=== PATIENT | female | born 1985 | race Caucasian/White ===

== ENCOUNTER 2018-02-17 10:03 | Emergency (ER) | payer BC ==
[2018-02-17 13:40] LABS: Barbiturates NEGATIVE (NEGATIVE); Benzodiazepines NEGATIVE (NEGATIVE); Cocaine NEGATIVE (NEGATIVE); METHAMPHETAM NEGATIVE (NEGATIVE); Methadone NEGATIVE (NEGATIVE); Opiates NEGATIVE (NEGATIVE); Phencyclidine NEGATIVE (NEGATIVE); THC Cannibis NEGATIVE (NEGATIVE)
--- NOTE | 2018-02-17 13:48 | EDPHYS ---
Physician Documentation [facility] Name: Terri Braden Age: 32 yrs Sex: Female : 1985 Arrival Date: 02/17/2018 Time: 10:07 Bed 5 Private MD: Norman Meza R ED Physician Maulik Smyth HPI: 02/17 13:19 This 32 yrs old Female presents to ER via Ambulatory with complaints of sabrina Dizziness, Nausea. 13:19 The patient presents with dizziness. Onset: The symptoms/episode began/occurred 2 sabrina day(s) ago. Context: occurred at a bar or nightclub, occurred while the patient was drinking. Modifying factors: The symptoms are alleviated by nothing, the symptoms are aggravated by nothing. Associated signs and symptoms: The patient has no apparent associated signs or symptoms. Severity of symptoms: At their worst the symptoms were mild in the emergency department the symptoms are unchanged. Patient's baseline: Neuro: alert and fully oriented. 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 - Social history:: Smoking status: Patient/guardian denies using tobacco. - Ebola Screening: : No symptoms or risks identified at this time. - Family history:: not pertinent. ROS: 13:19 Constitutional: Negative for fever, chills, and weight loss, Eyes: Negative for injury, sabrina pain, redness, and discharge, ENT: Negative for injury, pain, and discharge, Neck: Negative for injury, pain, and swelling, Cardiovascular: Negative for chest pain, palpitations, and edema, Respiratory: Negative for shortness of breath, cough, wheezing, and pleuritic chest pain, Abdomen/GI: Negative for abdominal pain, nausea, vomiting, diarrhea, and constipation, Back: Negative for injury and pain, : Negative for injury, bleeding, discharge, and swelling, MS/Extremity: Negative for injury and deformity, Skin: Negative for injury, rash, and discoloration, Neuro: Negative for headache, weakness, numbness, tingling, and seizure, Psych: Negative for depression, anxiety, suicide ideation, homicidal ideation, and hallucinations, Allergy/Immunology: Negative for hives, rash, and allergies, Endocrine: Negative for neck swelling, polydipsia, polyuria, polyphagia, and marked weight changes, Hematologic/Lymphatic: Negative for swollen nodes, abnormal bleeding, and unusual bruising. Exam: 13:19 Constitutional: This is a well developed, well nourished patient who is awake, alert, sabrina and in no acute distress. Head/Face: Normocephalic, atraumatic. Eyes: Pupils equal round and reactive to light, extra-ocular motions intact. Lids and lashes normal. Conjunctiva and sclera are non-icteric and not injected. Cornea within normal limits. Periorbital areas with no swelling, redness, or edema. ENT: Nares patent. No nasal discharge, no septal abnormalities noted. Tympanic membranes are normal and external auditory canals are clear. Oropharynx with no redness, swelling, or masses, exudates, or evidence of obstruction, uvula midline. Mucous membranes moist. Neck: Trachea midline, no thyromegaly or masses palpated, and no cervical lymphadenopathy. Supple, full range of motion without nuchal rigidity, or vertebral point tenderness. No Meningismus. Chest/axilla: Normal chest wall appearance and motion. Nontender with no deformity. No lesions are appreciated. Cardiovascular: Regular rate and rhythm with a normal S1 and S2. No gallops, murmurs, or rubs. Normal PMI, no JVD. No pulse deficits. Respiratory: Lungs have equal breath sounds bilaterally, clear to auscultation and percussion. No rales, rhonchi or wheezes noted. No increased work of breathing, no retractions or nasal flaring. Abdomen/GI: Soft, non-tender, with normal bowel sounds. No distension or tympany. No guarding or rebound. No evidence of tenderness throughout. Back: No spinal tenderness. No costovertebral tenderness. Full range of motion. Skin: Warm, dry with normal turgor. Normal color with no rashes, no lesions, and no evidence of cellulitis. MS/ Extremity: Pulses equal, no cyanosis. Neurovascular intact. Full, normal range of motion. Neuro: Awake and alert, GCS 15, oriented to person, place, time, and situation. Cranial nerves II-XII grossly intact. Motor strength 5/5 in all extremities. Sensory grossly intact. Cerebellar exam normal. Normal gait. Psych: Awake, alert, with orientation to person, place and time. Behavior, mood, and affect are within normal limits. Vital Signs: 10:41 BP 141 / 77; Pulse 62; Resp 16 S; Temp 99.2(TE); Pulse Ox 100% on R/A; Weight 61.23 kg aa5 (R); Height 5 ft. 2 in. (157.48 cm) (R); Pain 7/10; 14:50 BP 110 / 72; Pulse 70; Resp 19; Pulse Ox 99% on R/A; aj 10:41 Body Mass Index 24.69 (61.23 kg, 157.48 cm) aa5 MDM: 12:28 Patient medically screened. [facility] 13:19 Data reviewed: vital signs, nurses notes, lab test result(s), radiologic studies, CT sabrina scan. 02/17 12:34 Order name: Urine Dipstick--Ancillary (enter results) 02/17 12:34 Order name: Urine --Ancillary (enter results) 02/17 13:19 Order name: Acetaminophen; Complete Time: 14:43 [facility] 02/17 13:19 Order name: Basic Metabolic Panel; Complete Time: 14:43 [facility] 02/17 13:19 Order name: CBC with Diff; Complete Time: 14:25 [facility] 02/17 13:19 Order name: ETOH Level; Complete Time: 14:43 [facility] 02/17 13:19 Order name: CT Head Brain wo Cont; Complete Time: 14:25 [facility] 02/17 13:19 Order name: Hepatic Function; Complete Time: 14:43 [facility] 02/17 13:19 Order name: PT-INR; Complete Time: 14:25 [facility] 02/17 13:19 Order name: Ptt, Activated; Complete Time: 14:25 [facility] 02/17 13:19 Order name: Salicylate [facility] 02/17 13:19 Order name: Urine Drug Screen; Complete Time: 13:47 [facility] 02/17 13:19 Order name: EKG; Complete Time: 13:20 [facility] 02/17 13:19 Order name: EKG - Nurse/Tech; Complete Time: 13:48 [facility] 02/17 13:19 Order name: IV Saline Lock; Complete Time: 13:48 [facility] 02/17 13:19 Order name: Labs collected and sent; Complete Time: 13:49 [facility] 02/17 13:19 Order name: Urine Dipstick-Ancillary (obtain specimen); Complete Time: 13:22 [facility] 02/17 14:44 Order name: PO challenge: juice; Complete Time: 14:48 [facility] Administered Medications: 13:30 Drug: NS 0.9% 500 ml Route: IV; Rate: bolus; Site: right antecubital; bp 14:49 Follow up: Response: No adverse reaction; IV Status: Completed infusion; IV Intake: aj 500ml 14:48 Drug: Potassium Effervescent Tablet 25 mEq Route: PO; aj 14:49 Follow up: Response: Medication administered at discharge. aj Disposition: 02/17/18 13:47 Discharged to Home. Impression: Superficial injury of head, Hypokalemia. - Condition is Stable. - Discharge Instructions: Alcohol Intoxication, Concussion, Adult, Potassium Content of Foods, Head Injury, Adult, Alcohol Intoxication, Xbma-kt-Ilfq, Alcohol Abuse and Nutrition, Concussion, Adult, Gyim-eu-Cqkw, Head Injury, Adult, Zkbc-cq-Wdcp, Hypokalemia. - Medication Reconciliation Form, Thank You Letter, Antibiotic Education, Prescription Opioid Use form. - Follow up: Norman Meza; When: 2 - 3 days; Reason: Recheck today's complaints, Continuance of care, Re-evaluation by your physician. - Problem is new. - Symptoms have improved. Signatures: Dispatcher [employer] EDMS Ashlee Islas RN Maulik Singh MD MD cha Calderon, Audri, RN RN aa5 John Ewing RN RN bp Corrections: (The following items were deleted from the chart) 14:44 13:47 02/17/2018 13:47 Discharged to Home. Impression: Superficial injury of head. [facility] Condition is Stable. Discharge Instructions: Alcohol Intoxication, Head Injury, Adult, Alcohol Intoxication, Yqsr-fh-Ljvx, Alcohol Abuse and Nutrition, Head Injury, Adult, Nivb-in-Igql, Concussion, Adult, Concussion, Adult, Ovoc-im-Ymre. Forms are Medication Reconciliation Form, Thank You Letter, Antibiotic Education, Prescription Opioid Use. Follow up: Norman Meza; When: 2 - 3 days; Reason: Recheck today's complaints, Continuance of care, Re-evaluation by your physician. Problem is new. Symptoms have improved. [facility] 14:51 14:44 02/17/2018 13:47 Discharged to Home. Impression: Superficial injury of head; aj Hypokalemia. Condition is Stable. Discharge Instructions: Alcohol Intoxication, Head Injury, Adult, Alcohol Intoxication, Ctzy-mp-Ywdf, Alcohol Abuse and Nutrition, Head Injury, Adult, Ntoj-et-Rgeo, Concussion, Adult, Concussion, Adult, Kgar-jm-Spym. Forms are Medication Reconciliation Form, Thank You Letter, Antibiotic Education, Prescription Opioid Use. Follow up: Norman Meza; When: 2 - 3 days; Reason: Recheck today's complaints, Continuance of care, Re-evaluation by your physician. Problem is new. Symptoms have improved. sabrina
--- NOTE | 2018-02-17 13:48 | ER ---
Nurse's Notes [facility] Name: Terri Braden Age: 32 yrs Sex: Female : 1985 Arrival Date: 02/17/2018 Time: 10:07 Bed 5 Private MD: Norman Meza R Diagnosis: Superficial injury of head;Hypokalemia Presentation: 02/17 10:40 Presenting complaint: Patient states: "I was drinking Tuesday night and I just aa5 collapsed falling backwards and my friends said that I was out for about 2 minutes". Pt c/o dizziness, nausea, and vomiting. Pt states "I am just worried that I have a concussion". Transition of care: patient was not received from another setting of care. Onset of symptoms was January 2018. Risk Assessment: Do you want to hurt yourself or someone else? Patient reports no desire to harm self or others. Initial Sepsis Screen: Does the patient meet any 2 criteria? No. Patient's initial sepsis screen is negative. Does the patient have a suspected source of infection? No. Patient's initial sepsis screen is negative. Care prior to arrival: None. 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 - Social history:: Smoking status: Patient/guardian denies using tobacco. - Ebola Screening: : No symptoms or risks identified at this time. - Family history:: not pertinent. Screenin:21 Abuse screen: Denies threats or abuse. Denies injuries from another. Nutritional aj screening: No deficits noted. Tuberculosis screening: No symptoms or risk factors identified. Fall Risk None identified. Assessment: 12:21 General: Appears in no apparent distress. comfortable, Behavior is calm, cooperative, aj appropriate for age. Pain: Denies pain. Neuro: Level of Consciousness is awake, alert, obeys commands, Oriented to person, place, time, situation, Appropriate for age Reports headache. Respiratory: Airway is patent Respiratory effort is even, unlabored, Respiratory pattern is regular, symmetrical. GI: Abdomen is flat, Reports nausea, vomiting. Derm: Skin is intact, is healthy with good turgor, Skin is pink, warm \\T\\ dry. normal. Vital Signs: 10:41 BP 141 / 77; Pulse 62; Resp 16 S; Temp 99.2(TE); Pulse Ox 100% on R/A; Weight 61.23 kg aa5 (R); Height 5 ft. 2 in. (157.48 cm) (R); Pain 7/10; 14:50 BP 110 / 72; Pulse 70; Resp 19; Pulse Ox 99% on R/A; aj 10:41 Body Mass Index 24.69 (61.23 kg, 157.48 cm) aa5 ED Course: 10:07 Patient arrived in ED. mr 10:07 Norman Meza MD is Private Physician. mr 10:39 Arm band placed on. aa5 10:41 Triage completed. aa5 12:18 John Ewing, RN is Primary Nurse. bp 12:20 Primary Nurse role handed off by John Ewing, OZZIE aj 12:20 Ashlee Islas, OZZIE is Primary Nurse. aj 12:21 Patient has correct armband on for positive identification. aj 12:28 Maulik Smyth MD is Attending Physician. sabrina 13:30 Inserted saline lock: 22 gauge in right antecubital area, using aseptic technique. bp Blood collected. 13:47 Norman Meza MD is Referral Physician. sabrina 13:57 CT Head Brain wo Cont In Process Unspecified. EDMS 14:50 No provider procedures requiring assistance completed. IV discontinued, intact, aj bleeding controlled, No redness/swelling at site. Pressure dressing applied. Administered Medications: 13:30 Drug: NS 0.9% 500 ml Route: IV; Rate: bolus; Site: right antecubital; bp 14:49 Follow up: Response: No adverse reaction; IV Status: Completed infusion; IV Intake: aj 500ml 14:48 Drug: Potassium Effervescent Tablet 25 mEq Route: PO; aj 14:49 Follow up: Response: Medication administered at discharge. aj Intake: 14:49 IV: 500ml; Total: 500ml. aj Outcome: 13:47 Discharge ordered by . sabrina 14:50 Discharged to home ambulatory. aj 14:50 Condition: good 14:50 Discharge instructions given to patient, Instructed on discharge instructions, follow up and referral plans. Demonstrated understanding of instructions, follow-up care. 14:51 Patient left the ED. aj Signatures: Dispatcher [employer] Ashlee Lara RN RN Maulik Ayala MD MD cha Rivera, Mary mr Herminia Moise, RN RN aa5 John Ewing RN RN bp
[2018-02-17] MEDS ORDERED: NA CHLORIDE 0.9% 500 ML ONE (13:53)
[2018-02-17 13:54] LABS: Absolute Lymphocytes (CBC) 2.3 K/uL (0.7-4.9); Absolute Monocytes 0.3 K/uL (0.1-1.3); Absolute Neutrophil 3.1 K/uL (1.8-8.0); Eosinophils % 3.4 % (0-4.4); Hematocrit 38.7 % (36.0-45.0); Lymphocytes % 38.5 % (15.3-44.8); MCH 31.5 pg (27.0-35.0); MCV 90.4 fL (80-100); MPV 9.5 fL (7.6-11.3); Monocytes % 5.5 % (3.3-12.3); RBC Red Blood Cell Count 4.28 M/uL (3.86-4.86)
--- NOTE | 2018-02-17 14:10 | RAD REPORT ---
EXAM DESCRIPTION: CT - Head Brain Wo Cont - 02/17/2018 1:57 pm CLINICAL HISTORY: Fall, loss of consciousness COMPARISON: CT head August 2009 TECHNIQUE: Axial 5 mm thick images of the head were obtained without IV contrast. All CT scans are performed using dose optimization technique as appropriate and may include automated exposure control or mA/KV adjustment according to patient size. FINDINGS: No intracranial hemorrhage, mass, edema or shift of mid-line structures. No acute infarcti on changes seen. Minimal focus of decreased attenuation left occipital lobe white matter is not subst antially different from 2010. Ventricles are normal. Physiologic calcifications are present. Mastoid air cells and visualized portions of the paranasal sinuses are clear. No acute bony findings. IMPRESSION: Negative noncontrast CT head for acute finding. No changes from 2009.
[2018-02-17 14:28] LABS: ALT/SGPT 32 U/L (12-78); AST/SGOT 30 U/L (15-37); Albumin 4.5 g/dL (3.4-5.0); Alkaline Phosphatase 52 U/L (45-117); BUN Blood Urea Nitrogen 12 mg/dL (7-18); Bicarbonate 25 mmol/L (21-32); Bilirubin Direct 0.2 mg/dL (0-0.2); Bilirubin Total 0.6 mg/dL (0.2-1.0); Glucose Level 91 mg/dL (74-106); Potassium 3.1 mmol/L (3.5-5.1); Protein, Total 7.9 g/dL (6.4-8.2); Sodium Level 142 mmol/L (136-145)
[2018-02-17] MEDS ORDERED: POTASSIUM 25 MEQ EFFERV TAB ONE (14:51)
[2018-02-17 14:59] VITALS: TEMP 99.2
[2018-02-17 15:00] VITALS: BP 110/72; O2SAT 99
[2018-02-17 15:40] LABS: Urine Specific Gravity 1.015 (1.005-1.030)
[2018-02-17 15:41] LABS: Urine Blood NEGATIVE (NEG); Urine Glucose NEGATIVE (NEG); Urine Protein NEGATIVE (NEG)
--- NOTE | 2018-02-18 07:03 | EKG ---
Test Date: 2018-02-17 Test Time: 13:32:32 Remelt Pan Tank Operator: LAURA MEASUREMENT RESULTS: Intervals: Rate: 54 WY: 124 QRSD: 88 QT: 432 QTc: 409 [place]: P: 16 WY: 124 QRS: 48 T: 46 INTERPRETIVE STATEMENTS: Sinus bradycardia Nonspecific T wave abnormality Abnormal ECG No previous ECG available for comparison Electronically Signed On 02-18-18 07:02:36 [employer] by Michael Wilkinson
== END 2018-02-17 14:51 | disposition home or self-care (01) ==
LOC: ER 10:03
DX: S00.90XA Unspecified superficial injury of unspecified part of head, initial encounter (principal); E87.6 Hypokalemia; X58.XXXA Exposure to other specified factors, initial encounter; Y93.9 Activity, unspecified; Y92.89 Other specified places as the place of occurrence of the external cause; Z88.0 Allergy status to penicillin; Z98.82 Breast implant status
CPT/HCPCS: 36415; 70450; 80048; 80076; 80307; 80320; 80329; 81003; 81025; 85025; 85610; 85730; 93005; 96360; 99284

== ENCOUNTER 2022-04-06 16:20 | Emergency (ER) | payer BC ==
--- OUTSIDE RECORDS SUMMARY | 2022-04-06 16:23 | XMS REPORT | Continuity of Care Document ---
:1985 Author Organization [facility] t Address [address] [place] [address] Care Team Providers Name Role Phone LARON ALFORD Attending Clinician Unavailable LAB90 Attending Clinician Unavailable DESAHWN KHANNA Attending Clinician Unavailable ANGELINE COYLE Attending Clinician Unavailable UNKNOWN, ATTENDING Attending Clinician Unavailable SONA IZQUIERDO Attending Clinician Unavailable DEMETRIA ALAS Attending Clinician Unavailable LARON ALFORD Admitting Clinician Unavailable DEMETRIA ALAS Admitting Clinician Unavailable Payers Payer Name Policy Type Policy Number Effective Date Expiration Date S ource [employer] [place] - [id number] 2017 00:00:00 [facility] [id number] 2022 00:00:00 Problems Condition Condition Condition Status Onset Resolution Last Treating Co mments Source Name Details Category Date Date Treatment Clinician Date Lower Lower Disease Active Anna abdominal abdominal 1-10 Seyb old pain pain 00:00: - 00 Externa l Anxiety Anxiety Disease Active Anna 1-10 Seybold 00:00: - 00 Externa l Allergies, Adverse Reactions, Alerts Allergy Allergy Status Severity Reaction(s) Onset Inactive Treating Comm ents Source Name Type Date Date Clinician PENICILL Drug Active Unknown-Cmnt 2018-03 Un kendrick INS Class 2-02 ity of 00:00: [place] [facility] Penicill Propensi Active 2018-03 Other Anna ins ty to 2-02 reaction( Seybold adverse 00:00: s): - reaction 00 Unknown - Exter na s See l commentsC hildhood / unknown reaction Social History Social Habit Start Date Stop Date Quantity Comments Source History SDOH Anna Seybo ld Alcohol Frequency - Exter nal History SDOH Anna Lesly lamar Alcohol Std - External Drinks History SDOH Anna lamar Alcohol Binge - External History of Anna Rosana tobacco use - External Alcohol Comment 2022-04-06 2022-04-06 occasionally Anna jossie 00:00:00 00:00:00 - External Tobacco use and 2022-04-06 2022-04-06 Smokeless tobacco Brice Wayne exposure 00:00:00 00:00:00 non-user - External Alcohol intake 2022-04-06 2022-04-06 Current drinker of Brice Wayne 00:00:00 00:00:00 alcohol (finding) - Exter nal Sex [birth year] At [birth year] Anna Se sethi 00:00:00 00:00:00 - External Smoking Status Start Date Stop Date Source Ex-smoker 2022-04-06 00:00:00 2022-04-06 00:00:00 Anna roth - External Medications Ordered Filled Start Stop Current Ordering Indication Dosage Frequency Signature Comments Components Source Medication Medication Date Date Medication? Clinician (SIG) Name Name Escitalopra Yes 10mg Take 10 mg Anna byrd Oxalate 1-10 by mouth Angelaol d (Lexapro) 08:44: daily - 10 MG oral 27 Externa Tablet l Immunizations Ordered Immunization Filled Immunization Date Status Commen ts Source Name Name Tdap- (Boostrix, 2019-08-14 Completed Anna roth Adacel) 00:00:00 - External Influenza Virus 2019-04-05 Completed Anna sethi Vaccine, No Preserv, 00:00:00 - Ex ternal age 6 months and up Vital Signs Vital Name Observation Time Observation Value Comments Source Systolic blood 2022-04-06 14:37:00 120 mm[Hg] Anna Wayne - pressure External Diastolic blood 2022-04-06 14:37:00 72 mm[Hg] Erendira Wayne - pressure External Heart rate 2022-04-06 14:37:00 87 /min Anna roth - External Body temperature 2022-04-06 14:37:00 35.89 Pauline Jeniseselvin Wayne - External Respiratory rate 2022-04-06 14:37:00 14 /min Jenise Wayne - External Body height 2022-04-06 14:37:00 154.9 cm Anna roth - External Body weight 2022-04-06 14:37:00 68.493 kg Anna roth - External BMI 2022-04-06 14:37:00 28.53 kg/m2 Anna roth - External Procedures This patient has no known procedures. Plan of Care Planned Activity Planned Date Details Comments Source Encounters Start End Encounter Admission Attending Care Care Encounter Source Date/Time Date/Time Type Type Clinicians Facility Department ID 2021-01-23 Outpatient R ALFORDLARON [facility] [id number] [facility] 14:22:40 [facility] 2021-01-23 Outpatient P [facility] [id number] [facility] 07:01:40 [facility] 2021-01-23 Outpatient P [facility] [id number] [facility] 07:01:04 [facility] 2022-04-06 2022-04-06 Outpatient LAB90 ANNA FERRARA [id number] Anna 15:20:00 15:20:00 Seybol d 2022-04-06 2022-04-06 Outpatient LAB90 ANNA FERRARA [id number] Anna 09:10:00 09:10:00 Seybol d 2022-04-06 2022-04-06 Outpatient ANNA KHANNA [id number] Anna 08:30:00 08:30:00 DESHAWN Seybol d 2022-04-06 2022-04-06 Outpatient ANNA COYLE [id number] Anna 00:00:00 00:00:00 ANGELINE Seybol d 2022-04-06 2022-04-06 Outpatient ANNA KHANNA [id number] Anna 00:00:00 00:00:00 DESHAWN Seybol d 2020-11-16 2020-11-16 Outpatient Ryan WING [facility] [id number] Univers 10:00:00 10:00:00 ATTENDING [facility] 2020-10-13 2020-10-13 Outpatient R FELECIA [facility] [id number] Univers 13:00:00 13:00:00 [facility] 2020-05-12 2020-05-12 Outpatient Ryan JARVISMELISSA [facility] [id number] Univers 10:00:00 10:00:00 [facility] 2020-02-19 2020-02-19 Outpatient Ryan ALFORD [facility] [id number] Univers 16:00:00 16:00:00 [facility] 2020-02-05 2020-02-05 Outpatient R PRASHANTH [facility] [id number] [facility] 14:30:[facility] 2019-12-27 Outpatient R PRASHANTH [facility] [id number] Univers 15:30:00 15:30:00 [facility] 2019-12-14 2019-12-14 Outpatient R PRASHANTH [facility] [id number] Univers 15:00:00 15:00:00 [facility] 2019-12-10 2019-12-10 Outpatient R FELECIA [facility] [id number] Univers 11:00:00 11:00:00 [facility] 2019-12-10 2019-12-10 Outpatient Ryan ALFORD [facility] [id number] Univers 09:30:00 09:30:00 [facility] 2019-11-30 2019-11-30 Outpatient Ryan ALFORD [facility] [id number] Univers 09:45:00 09:45:00 [facility] 2019-11-16 2019-11-16 Outpatient R PRASHANTH LARON [facility] [id number] Univers 14:00:00 14:00:00 [facility] 2019-11-14 2019-11-14 Outpatient R FELECIA [facility] [id number] Univers 11:00:00 11:00:00 [facility] 2019-11-09 2019-11-09 Outpatient Ryan IZQUIERDO [facility] [id number] Univers 16:15:00 16:15:00 [facility] 2019-10-18 2019-10-18 Outpatient R [facility] [id number] Univers 10:30:00 10:30:00 [facility] 2019-10-15 2019-10-15 Outpatient R FELECIA [facility] [id number] Univers 11:15:00 11:15:00 [facility] 2019-10-12 2019-10-12 Outpatient R LARON ALFORD [facility] [id number] Univers 13:00:00 13:00:00 ity [facility] 2019-10-10 2019-10-10 Outpatient R LARON ALFORD [facility] [id number] Univers 14:45:00 14:45:00 ity [facility] 2019-10-05 2019-10-05 Outpatient R FELECIA [facility] [id number] Univers 08:15:00 08:15:00 [facility] 2019-10-03 2019-10-03 Outpatient R FELECIA [facility] [id number] Univers 16:15:00 16:15:00 [facility] 2019-09-28 2019-09-28 Outpatient R PRASHANTH [facility] [id number] Univers 13:30:00 13:30:00 ity [facility] 2019-09-27 2019-09-27 Outpatient R LARON ALFORD [facility] [id number] [facility] 08:00:00 08:[facility] 2019-09-13 Outpatient R PRASHANTH LARON [facility] [id number] Univers 08:15:00 08:15:00 ity [facility] 2019-08-31 2019-08-31 Outpatient R FELECIA [facility] [id number] Univers 11:30:00 11:30:00 [facility] 2019-08-17 2019-08-17 Outpatient R [facility] [id number] Univers 08:30:00 08:30:00 ity [facility] 2019-08-16 2019-08-16 Outpatient R [facility] [id number] Univers 08:30:00 08:30:00 ity [facility] 2019-08-14 2019-08-14 Outpatient R PRASHANTH [facility] [id number] Univers 13:30:00 13:30:00 [facility] 2019-08-07 2019-08-07 Outpatient R EVETTE [facility] [id number] Univers 10:00:00 10:00:00 DEMETRIA [facility] 2019-07-26 2019-07-26 Outpatient R LARON ALFORD [facility] [id number] Univers 10:30:00 10:30:00 [facility] 2019-06-28 2019-06-28 Outpatient R FELECIA [facility] [id number] Univers 08:45:00 08:45:00 SONA [facility] 2019-06-01 2019-06-01 Outpatient P [facility] [id number] Univers 08:00:00 08:00:00 [facility] 2019-05-31 2019-05-31 Outpatient LARON GARCIA [facility] [id number] Univers 08:30:00 08:30:00 [facility] Results This patient has no known results.
[2022-04-06 17:31] LABS: Urine Blood Trace-intact (Negative); Urine Glucose Negative (Negative); Urine Protein Trace (Negative); Urine Specific Gravity >=1.030 (1.005-1.030); Urine pH 6.5 (5.0-7.0)
[2022-04-06] MEDS ORDERED: HYDROCODONE/CHLORPHEN 5 ML/OSYR ONE (18:14)
[2022-04-06 18:49] LABS: Urine Specific Gravity/Preg >1.030 (1.005-1.030)
[2022-04-06] MEDS ORDERED: ONDANSETRON 4 MG/2 ML VIAL ONE (19:52)
[2022-04-06] MEDS ORDERED: KETOROLAC 30 MG/ML INJ ONE (19:52)
[2022-04-06] MEDS ORDERED: NA CHLORIDE 0.9% 1,000 ML ONE (19:52)
[2022-04-06 20:00] LABS: Absolute Lymphocytes (CBC) 2.6 K/uL (0.7-4.9); Hematocrit 34.2 % (36.0-45.0); Lymphocytes % 28.9 % (15.3-44.8); MCV 96.2 fL (80-100); MPV 8.7 fL (7.6-11.3); RBC Red Blood Cell Count 3.55 M/uL (3.86-4.86)
[2022-04-06 20:14] LABS: Albumin 3.6 g/dL (3.4-5.0); Bilirubin Total 0.5 mg/dL (0.2-1.0); Protein, Total 7.2 g/dL (6.4-8.2)
[2022-04-06 21:32] LABS: Urine Bacteria None Seen /HPF (<20); Urine Crystals Unidentified Few /HPF (None Seen); Urine Mucus 3+ /HPF (None Seen); Urine WBC Clump Occasional /HPF (None Seen)
--- NOTE | 2022-04-06 21:38 | RAD REPORT ---
EXAM DESCRIPTION: CT - Abdomen Pelvis W Contrast - 04/06/2022 9:00 pm CLINICAL HISTORY: lower abdomen pain COMPARISON: No comparisonsNo comparisons TECHNIQUE: Biphasic, helical CT imaging of the abdomen and pelvis was performed following 100 ml non -ionic IV contrast. Oral contrast: No. All CT scans are performed using dose optimization technique as appropriate and may include automated exposure control or mA/KV adjustment according to patient size. FINDINGS: No suspicious findings in the lung bases. The liver, spleen, and pancreas show no suspicious findings. Gallbladder and biliary tree are also wi thout suspicious finding. Symmetric renal function is seen with no hydronephrosis or suspicious renal mass. No pyelonephritis o r acute parenchymal process. No bladder abnormalities. No adrenal abnormalities. Uterus and ovaries s how no suspicious findings. No dilated bowel loops or bowel wall thickening. Appendix is normal. No free air, free fluid or infla mmatory stranding. No hernia, mass or bulky lymphadenopathy. No suspicious bony findings. Bilateral breast implants are in place. There is infolding of the left breast implant capsule indicat ing partial collapse. IMPRESSION: Contrast enhanced CT abdomen and pelvis showing no acute or emergent finding. Left breast implant findings suggest rupture and partial collapse. Implant is only partially imaged.
--- NOTE | 2022-04-06 22:43 | RAD REPORT ---
EXAM DESCRIPTION: US - Transvaginal Study Probe - 04/06/2022 10:29 pm CLINICAL HISTORY: lower abdomen pain COMPARISON: No comparisons TECHNIQUE: Endovaginal sonography was performed. FINDINGS: Uterine size is normal. No myometrial mass identified. Small nabothian cysts present. No e ndometrial mass or polyp identifiable. No abnormal fluid in the endometrial canal. No fallopian tube dilatation. Physiologic quantity of free fluid seen in the cul de sac. Both ovaries are identified. Normal blood flow seen in the ovarian stroma. A 1.5 centimeter left ovar chris anechoic cyst is present. No adnexal abnormalities. IMPRESSION: Endovaginal pelvic ultrasound, as detailed above, without significant or suspicious find ing.
--- NOTE | 2022-04-07 00:18 | ER ---
Nurse's Notes [facility] Name: Terri Braden Age: 36 yrs Sex: Female : 1985 Arrival Date: 04/06/2022 Time: 16:22 Bed 18 Private MD: Adams Raza Diagnosis: Lower abdominal pain, unspecified Presentation: 04/06 16:28 Chief complaint: Patient states: Lower abd pain for 5 days. Had 4 days of diarrhea, but ll1 gone now. No fever or dysuria. Coronavirus screen: Vaccine status: Patient reports being unvaccinated. Client denies travel out of the [place] in the last 14 days. At this time, the client does not indicate any symptoms associated with coronavirus-19. Ebola Screen: Patient denies travel to an Ebola-affected area in the 21 days before illness onset. Initial Sepsis Screen: Does the patient meet any 2 criteria? No. Patient's initial sepsis screen is negative. Does the patient have a suspected source of infection? Yes: Acute abdominal pain. Risk Assessment: Do you want to hurt yourself or someone else? Patient reports no desire to harm self or others. Onset of symptoms was April 01, 2022. 16:28 Method Of Arrival: Ambulatory ll1 16:28 Acuity: EVANS 3 ll1 Historical: - Allergies: 16:30 PENICILLINS; ll1 - PMHx: 16:30 Asthma; ll1 - PSHx: 16:30 ankle ORIF; breast augmentation x 2; ll1 - Immunization history:: Client reports having NOT received the Covid vaccine. - Social history:: Smoking status: Reported history of juuling and/or vaping. Patient/guardian denies using tobacco. Screenin:15 [facility] ED Fall Risk Assessment (Adult) History of falling in the last 3 months, jj7 including since admission No falls in past 3 months (0 pts) Confusion or Disorientation No (0 pts) Intoxicated or Sedated No (0 pts) Impaired Gait No (0 pts) Mobility Assist Device Used No (0 pt) Altered Elimination No (0 pt) Score/Fall Risk Level 0 - 2 = Low Risk Oriented to surroundings, Maintained a safe environment. Abuse screen: Denies threats or abuse. Nutritional screening: No deficits noted. Tuberculosis screening: No symptoms or risk factors identified. Assessment: 19:15 General: Appears in no apparent distress. comfortable, Behavior is calm, cooperative, jj7 appropriate for age. Pain: Complains of pain in right lower quadrant and left lower quadrant. GI: Bowel sounds present X 4 quads. Abd is soft X 4 quads Abdomen is tender to palpation in suprapubic area, right lower quadrant and left lower quadrant. Vital Signs: 16:28 BP 123 / 85; Pulse 70; Resp 16; Temp 98.2; Pulse Ox 100% ; Weight 68.04 kg; Height 5 ll1 ft. 1 in. (154.94 cm); Pain 7/10; 20:18 BP 117 / 73; Pulse 62; Resp 17; Pulse Ox 100% ; jj7 21:27 BP 118 / 65; Pulse 65; Resp 20; Pulse Ox 100% ; Pain 0/10; jj7 23:00 BP 116 / 61; Pulse 65; Resp 20; Pulse Ox 100% ; jj7 04/07 00:00 BP 119 / 70; Pulse 63; Resp 20; Pulse Ox 100% ; jj7 01:10 BP 121 / 68; Pulse 61; Resp 20; Pulse Ox 99% ; Pain 0/10; jj7 04/06 16:28 Body Mass Index 28.34 (68.04 kg, 154.94 cm) ll1 ED Course: 04/06 16:22 Patient arrived in ED. as 16:22 Adams Raza DO is Private Physician. as 16:29 Triage completed. ll1 16:31 Arm band placed on. ll1 16:46 Maulik Casillas PA is PHCP. cp 16:46 Vikas Hartmann MD is Attending Physician. cp 17:31 Urine collected: clean catch specimen, cloudy. tm3 19:15 Patient has correct armband on for positive identification. Placed in gown. Bed in low jj7 position. Call light in reach. 19:21 Desmond Crowe, OZZIE is Primary Nurse. jj7 19:40 Inserted saline lock: 22 gauge in right upper arm, using aseptic technique. Blood jj7 collected. 19:46 CBC with Diff Sent. jj7 19:46 CMP Sent. jj7 19:46 Lipase Sent. jj7 19:46 Urine Microscopic Only Sent. jj7 21:02 CT Abd/Pelvis - IV Contrast Only In Process Unspecified. EDMS 22:31 US Transvaginal Study (Probe) In Process Unspecified. EDMS 23:00 Assist provider with pelvic exam: Set up pelvic tray. jj7 23:21 Assist provider with pelvic exam: Performed by Maulik PATINO Specimens sent to lab. jj7 Patient tolerated well. 04/07 00:17 Adams Raza DO is Referral Physician. cp 00:58 IV discontinued, intact, bleeding controlled, No redness/swelling at site. Pressure jj7 dressing applied. Administered Medications: 04/06 19:53 Drug: NS 0.9% 1000 ml Route: IV; Rate: 1 bolus; Site: right upper arm; jj7 22:59 Follow up: IV Status: Completed infusion jj7 19:54 Drug: TORadol - (ketorolac) 15 mg Route: IVP; Site: right upper arm; jj7 20:15 Follow up: Response: Pain is decreased jj7 19:54 Drug: Zofran (Ondansetron) 4 mg Route: IVP; Site: right upper arm; jj7 20:07 Follow up: Response: No adverse reaction jj7 04/07 00:55 Drug: Dicyclomine 20 mg Route: IM; Site: left gluteus; jj7 01:05 Follow up: Response: No adverse reaction jj7 01:10 Follow up: Response: No adverse reaction jj7 Medication: 04/06 19:15 VIS not applicable for this client. jj7 Outcome: 04/07 00:17 Discharge ordered by MD. cp 01:10 Discharged to home ambulatory. jj7 01:10 Condition: improved 01:10 Discharge instructions given to patient, Instructed on discharge instructions, follow up and referral plans. medication usage, Demonstrated understanding of instructions, follow-up care, medications, Prescriptions given X 2. 01:33 Patient left the ED. jj7 Signatures: Dispatcher [employer] EDME CatherineFernando Amelia as Maulik Casillas PA PA cp Lencho Alves RN RN ll1 Desmond Crowe RN RN jj7 Corrections: (The following items were deleted from the chart) 04/06 16:31 16:30 PSHx: lyph node removed; ll1 ll1
--- NOTE | 2022-04-07 00:18 | EDPHYS ---
Physician Documentation [facility] Name: Terri Braden Age: 36 yrs Sex: Female : 1985 Arrival Date: 04/06/2022 Time: 16:22 Bed 18 Private MD: Adams Raza ED Physician Vikas Hartmann HPI: 04/06 19:45 This 36 yrs old Female presents to ER via Ambulatory with complaints of Abdominal Pain. cp 19:45 The patient presents with abdominal pain in the lower abdomen. Onset: The cp symptoms/episode began/occurred intermittent for past several months,pain returned this past and has been persistent. The symptoms do not radiate. 19:45 Associated signs and symptoms: Pertinent positives: diarrhea, Pertinent negatives: cp anorexia, blood in stools, constipation, dysuria, fever, vaginal discharge, vomiting. 19:45 The symptoms are described as constant, crampy. Severity of pain: in the emergency cp department the pain is unchanged despite home interventions. Historical: - Allergies: 16:30 PENICILLINS; ll1 - PMHx: 16:30 Asthma; ll1 - PSHx: 16:30 ankle ORIF; breast augmentation x 2; ll1 - Immunization history:: Client reports having NOT received the Covid vaccine. - Social history:: Smoking status: Reported history of juuling and/or vaping. Patient/guardian denies using tobacco. ROS: 19:50 Constitutional: Negative for body aches, chills, fever, poor PO intake. cp 19:50 Abdomen/GI: Positive for abdominal pain, of the right lower quadrant and left lower cp quadrant. 19:50 Cardiovascular: Negative for chest pain, edema, palpitations. cp 19:50 Eyes: Negative for injury, pain, redness, and discharge. cp 19:50 ENT: Negative for drainage from ear(s), ear pain, sore throat, difficulty swallowing, difficulty handling secretions. 19:50 Respiratory: Negative for cough, shortness of breath, wheezing. 19:50 Back: Negative for pain at rest, pain with movement. 19:50 Neuro: Negative for altered mental status, dizziness, headache, numbness, weakness. 19:50 All other systems are negative. Exam: 19:53 Constitutional: The patient appears in no acute distress, alert, awake, non-toxic, well cp developed, well nourished. 19:53 Head/Face: Normocephalic, atraumatic. cp 19:53 Eyes: Periorbital structures: appear normal, Conjunctiva: normal, no exudate, no injection, Sclera: no appreciated abnormality, Lids and lashes: appear normal, bilaterally. 19:53 ENT: External ear(s): are unremarkable, Nose: is normal, Mouth: Lips: moist, Oral mucosa: moist, Posterior pharynx: Airway: no evidence of obstruction, patent. 19:53 Chest/axilla: Inspection: normal. 19:53 Cardiovascular: Rate: normal, Rhythm: regular. 19:53 Respiratory: the patient does not display signs of respiratory distress, Respirations: normal, no use of accessory muscles, no retractions, no splinting, no tachypnea, labored breathing, is not present, Breath sounds: are clear throughout, no decreased breath sounds, no stridor, no wheezing. 19:53 Abdomen/GI: Inspection: abdomen appears normal, Bowel sounds: active, all quadrants, Palpation: soft, in all quadrants, moderate abdominal tenderness, in the right lower quadrant and left lower quadrant. 19:53 Back: pain, ROM is normal. 23:24 : Pelvic Exam: External exam: is normal, discharge, white, the nurse was present for cp the exam, Sexual behavior: the patient is sexually active. Vital Signs: 16:28 BP 123 / 85; Pulse 70; Resp 16; Temp 98.2; Pulse Ox 100% ; Weight 68.04 kg; Height 5 ll1 ft. 1 in. (154.94 cm); Pain 7/10; 20:18 BP 117 / 73; Pulse 62; Resp 17; Pulse Ox 100% ; jj7 21:27 BP 118 / 65; Pulse 65; Resp 20; Pulse Ox 100% ; Pain 0/10; jj7 23:00 BP 116 / 61; Pulse 65; Resp 20; Pulse Ox 100% ; jj7 04/07 00:00 BP 119 / 70; Pulse 63; Resp 20; Pulse Ox 100% ; jj7 01:10 BP 121 / 68; Pulse 61; Resp 20; Pulse Ox 99% ; Pain 0/10; jj7 04/06 16:28 Body Mass Index 28.34 (68.04 kg, 154.94 cm) ll1 MDM: 04/06 18:08 Patient medically screened. 19:00 Differential diagnosis: appendicitis, bowel obstruction, Ectopic , cp non-specific abd pain, Pelvic Inflammatory Disease, Pyelonephritis, Ureterolithiasis, urinary tract infection. 04/07 00:15 Data reviewed: vital signs, nurses notes, lab test result(s), radiologic studies, CT cp scan, ultrasound. 00:15 I considered the following discharge prescriptions or medication management in the emergency department Medications were administered in the Emergency Department. See MAR. Counseling: I had a detailed discussion with the patient and/or guardian regarding: the historical points, exam findings, and any diagnostic results supporting the discharge/admit diagnosis, the need for outpatient follow up, to return to the emergency department if symptoms worsen or persist or if there are any questions or concerns that arise at home. Response to treatment: the patient's symptoms have markedly improved after treatment, and as a result, I will discharge patient. 04/06 17:31 Order name: Urine Dipstick-Ancillary; Complete Time: 19:16 EDIL 04/06 17:36 Order name: Urine --Ancillary (enter results); Complete Time: 19:16 bd 04/06 19:17 Order name: Urine Microscopic Only; Complete Time: 21:48 cp 04/06 21:48 Interpretation: Normal except: UWBC >50; URBC 11-20; SQEPI 20-50; MUCUS 3+; UWBC Clump cp Occasional. 04/06 19:17 Order name: CBC with Diff; Complete Time: 21:48 cp 04/06 21:48 Interpretation: Normal except: RBC 3.55; HCT 34.2. 04/06 19:17 Order name: CMP; Complete Time: 21:48 04/06 21:49 Interpretation: Normal except: K 3.0. 04/06 19:17 Order name: Lipase; Complete Time: 21:48 04/06 19:17 Order name: CT Abd/Pelvis - IV Contrast Only; Complete Time: 21:48 04/06 21:49 Interpretation: Report reviewed. 04/06 21:39 Order name: Urine Culture [facility] 04/06 21:55 Order name: Wet Prep; Complete Time: 00:14 cp 04/07 00:14 Interpretation: Reviewed. 04/06 21:55 Order name: GC (GONORR/CHLAMYDIA) Probe cp 04/06 21:55 Order name: US Transvaginal Study (Probe); Complete Time: 22:44 cp 04/06 22:44 Interpretation: Reviewed report. cp 04/06 19:17 Order name: IV Saline Lock; Complete Time: 19:46 cp 04/06 19:17 Order name: Labs collected and sent; Complete Time: 19:46 cp 04/06 21:55 Order name: Pelvic Exam Setup cp Administered Medications: 04/06 19:53 Drug: NS 0.9% 1000 ml Route: IV; Rate: 1 bolus; Site: right upper arm; jj7 22:59 Follow up: IV Status: Completed infusion jj7 19:54 Drug: TORadol - (ketorolac) 15 mg Route: IVP; Site: right upper arm; jj7 20:15 Follow up: Response: Pain is decreased jj7 19:54 Drug: Zofran (Ondansetron) 4 mg Route: IVP; Site: right upper arm; jj7 20:07 Follow up: Response: No adverse reaction j7 04/07 00:55 Drug: Dicyclomine 20 mg Route: IM; Site: left gluteus; jj7 01:05 Follow up: Response: No adverse reaction jj7 01:10 Follow up: Response: No adverse reaction jj7 Disposition Summary: 04/07/22 00:17 Discharge Ordered Location: Home cp Problem: new cp Symptoms: have improved cp Condition: Stable cp Diagnosis - Lower abdominal pain, unspecified cp Followup: cp - With: Adams Raza DO - When: 1 - 2 days - Reason: Recheck today's complaints Discharge Instructions: - Discharge Summary Sheet cp - Abdominal Pain, Adult cp Forms: - Medication Reconciliation Form cp - Thank You Letter cp - Antibiotic Education cp - Prescription Opioid Use cp Prescriptions: - dicyclomine 20 mg Oral Tablet - take 1 tablet by ORAL route 4 times per day; 30 tablet; Refills: 0, Product cp Selection Permitted - Ibuprofen 800 mg Oral Tablet - take 1 tablet by ORAL route every 8 hours As needed take with food; 30 tablet; cp Refills: 0, Product Selection Permitted Signatures: Dispatcher [employer] EDMaulik Ortiz PA PA cp Lencho Alves RN RN Desmond Rae RN RN jj7 Corrections: (The following items were deleted from the chart) 04/06 16:31 16:30 PSHx: lyph node removed; angie adams
[2022-04-07] MEDS ORDERED: DICYCLOMINE HCL 20 MG/2 ML AMP IM ONE (00:43)
[2022-04-07 02:31] VITALS: TEMP 98.2
[2022-04-07 02:37] VITALS: BP 121/68; O2SAT 99
[2022-04-10 07:05] LABS: C.trachomatis RNA,TMA Not Detected (Not Detected)
== END 2022-04-07 01:33 | disposition home or self-care (01) ==
LOC: ER 16:20
DX: R10.30 Lower abdominal pain, unspecified (principal); Z98.82 Breast implant status; Z88.0 Allergy status to penicillin
CPT/HCPCS: 96361; 87088; 85025; 87086; 36415; 81025; 87210; 83690; 80053; 87590; 87490; 74177; 76830; 96375; 96372; 96374; 99284; Q9967; J0500; J7030; J2405; 81003; 81015

== ENCOUNTER 2024-01-05 10:58 | Day surgery (SDC) | payer BC ==
[2024-01-05] MEDS: SCOPOLAMINE HYDROBROMIDE PATCH TD ONE (11:35)
[2024-01-05] MEDS: Ringers Lactate 1,000 ML IV ONE (11:35)
[2024-01-05] MEDS ORDERED: FENTANYL CITR 100 MCG/2 ML ONE ×2 (12:36→14:01)
[2024-01-05] MEDS ORDERED: propofoL 200 MG/20 ML VIAL IV ONE (12:36)
[2024-01-05] MEDS ORDERED: LIDOCAINE 1% MPF 5 ML VIAL ONE (12:36)
[2024-01-05] MEDS ORDERED: ROCURONIUM 50 MG/5 ML VIAL IV ONE (12:36)
[2024-01-05] MEDS ORDERED: ONDANSETRON 4 MG/2 ML VIAL ONE (12:36)
[2024-01-05] MEDS ORDERED: dexAMETHasone 10 MG/ML VIAL ONE (12:36)
[2024-01-05] MEDS ORDERED: MIDAZOLAM HCL 2 MG/2 ML INJ ONE (12:36)
[2024-01-05] MEDS: CEFAZOLIN SODIUM 2 GM/VIAL ONE (13:25)
[2024-01-05] MEDS ORDERED: EPHEDRINE SULF 50 MG/ML VIAL ONE (13:33)
[2024-01-05] MEDS: BUPIVACAINE 0.25% PF 30 ML VIAL ONE (13:40)
[2024-01-05] MEDS: LIDOCAINE HCL/EPINEPHRINE 20 ML MDV ONE (14:00)
[2024-01-05] MEDS: MEPERIDINE HCL 25 MG/ML SYR ONE (15:32)
[2024-01-05] MEDS: HYDROMORPHONE HCL 1 MG/ML INJ ONE (15:33)
[2024-01-05] MEDS ORDERED: KETOROLAC 30 MG/ML INJ ONE (15:44)
[2024-01-05] MEDS: KETOROLAC 30 MG/ML INJ ONE (15:47)
[2024-01-05] MEDS: FENTANYL CITR 100 MCG/2 ML ONE (15:52)
[2024-01-05 17:05] VITALS: BP 105/51; TEMP 97; O2SAT 95
--- NOTE | 2024-01-08 15:27 | OP ---
Date of Procedure: 01/05/2024 Surgeon: Debra Chamberlain MD Support Merchandiser: Christy Kelly. Preoperative Diagnoses: Excessive menstrual cycles, dysmenorrhea, left labial hypertrophy, and labia l pain. Postoperative Diagnoses: Excessive menstrual cycles, dysmenorrhea, and endometriosis, left labial hy pertrophy and labial pain. Procedures Performed: 1.Diagnostic laparoscopy, bilateral salpingectomy, and endometriosis excision. 2.Diagnostic hysteroscopy, endometrial ablation with NovaSure. 3.Left labial reduction. Anesthesia: General endotracheal. Specimens: Bilateral tubes and endometriosis of the right and left lateral wall of the pelvic perito neum. Estimated Blood Loss: Minimal. Findings: Both tubes were mostly unremarkable. Endometriosis found on the bilateral lateral pelvic sidewalls, slightly above the level of the ureter and lateral to the uterosacral ligament insertion o n the broad ligament. Both endometrial implants were superficial and were excised completely. No ot her significant endometriosis was noted. Ovaries were unremarkable. Endometrial ablation was performed without any problems with cavity length of 5 cm, width 4.4. The p ower setting was 121 weaver and time 2 minutes. Good ablation effect was seen after the ablation was complete, and the cavity was visualized. Indications: The patient is a 38-year-old, who has completed childbearing and has had significantly heavy periods and significant cramping. Then, she underwent an ultrasound for evaluation of her endo metrium as well as her adnexa for masses. No significant abnormality was noted. Endometrium was rodrigo pled with hysteroscopy and D and C with no atypia or malignancy. We discussed all different options including repair and positioning and placement of an IUD, endometrial ablation for treatment of her b leeding and for treatment of her pain, diagnostic laparoscopy, endometriosis excision, bilateral salp ingectomy. The patient was consented for this after considering all the medical options including me dication that is a GnRH antagonist or control pills and therefore patient wanted to proceed wit h a definitive treatment. She had 2 IUDs in the past that she was unable to tolerate and therefore t his was the best option for her moving forward. She also had labial hypertrophy which was significant and causing irritation on her left labia. She completely understood that this was mostly a functional procedure and that it is not for esthetic ind ications and then slight asymmetry after the procedure is to be expected and thus she consented to th is. This was also added onto the procedure. Description Of Procedure: After the patient was given 2 g of Ancef and taken back to the OR, she was placed in supine fashion on the table. General anesthesia was given. Placed in a dorsal lithotomy position using Adrian stirrups. Abdomen prepped with ChloraPrep; vulva, vagina, and perineum with Bet adine and draped in a sterile fashion. Arms were tucked by the side. Positioning was checked. Time -out was done. SCDs were started and procedure started. Speculum was placed to expose the cervix. Anterior lip grasped with the single-tooth tenaculum and t he cervix dilated to 14-Slovenian. Endometrial Ablation: The uterus was sounded to 9 cm. The cervical length was 4 cm, the cavity lisa th was 5 cm, entered into the generator. Then, the ablation device was taken, primed and then insert ed into the uterus without any problems. Then, the width was 4.4 cm, and the power setting was at 12 1 weaver. After occluding the cervix with the occluder, the cavity integrity test was done and passed promptly. Then the ablation cycle was started and was uninterrupted for 120 seconds that is for 2 m inutes. Once these were shut off, the device was taken down in the usual fashion. A diagnostic hyst eroscope was passed towards the cavity and visualized the entire endometrium with excellent burn affe ct from the fundus to the lower portion of the uterine canal. This was removed and a diagnostic uter ine manipulator was introduced after the excision was done, and a Cristobal was placed to drain the bladd er and attached to gravity bag. Left labial excision or reduction: The left labium that was hypertrophic in the distal portion of th e labia minora was marked out with a marking pen in an elliptical fashion and 1% lidocaine mixed with 1:100,000 epinephrine 10 mL was injected. A 15 blade was used to excise the labial portion by creat ing 2 o'clock making sure that the hypertrophic portion was excised all the way to the base and this was not used as a specimen as there was no pathology. Hemostasis was secured with the Bovie, and marcial sure was done with a continuous running 0 Vicryl in a subcutaneous fashion and then in a subcuticular fashion with a horizontal running mattress suture. Antibiotic ointment was applied at the end of th e case on this and fluff bandages were placed. An infraumbilical 10 mm incision was made after injecting with 0.25% Marcaine in subcutaneous tissue. The fascia was incised with an 11 blade. Kochers were used to clamp the fascial edges, tagged with 0 Vicryl sutures on each side. Peritoneum entered sharply. Rosanna introduced. After adequate insu fflation, site of entry was checked and was unremarkable. The patient was placed in T-joon, and lowe r abdominal surfaces were all well visualized. Upper abdominal surfaces were unremarkable as well. A 5 suprapubic and left lower quadrant ports were placed under direct vision after injecting with Mar ra at the fascia and the skin. Bilateral salpingectomy: Both tubes were removed from the distal fimbriated end towards the cornual end and handed out with the help of the LigaSure. Endometriosis excision: The endometriosis from the lateral wall was identified in the ureter and manuel rosacral ligament and uterine vessels were all identified. Peritoneum was opened up sharply on the l eft side first and dissection was carried, opening up the lateral peritoneum with the LigaSure and th en dissecting it medially towards the uterosacral ligament and this was excised, handed out. Into th e fascia, lateral incision was made on the lateral wall lateral to the implant. Then excision of thi s was conducted with the LigaSure and handed off for permanent pathology. Thorough irrigation and españa ction were performed. Hemostasis was secured with the help of bipolar. No other implants were prese nt on careful examination of both broad ligaments, round ligament, mesosalpinges, suprapubic areas, t he bladder peritoneum, and anterior broad ligaments. After thorough suction and irrigation were comp leted, all ports were removed under direct vision. Gas was desufflated. The patient was flattened o ut. Uterine manipulator was removed and the Cristobal, antibiotic ointment was placed and fluffy placed on the bottom. On the top, the fascia was closed with the tagged 0 Vicryl sutures tied to each other and simple interrupted 4-0 Monocryl sutures to close all skin incisions. Instrument, needle, and sp onge counts were correct. At the end of the case, the patient tolerated the procedure well. She was recovered from anesthesia and taken to PACU in stable condition. Her was updated on the end ometriosis and her rest of the procedure. She will follow up in 1 week and 3 months for postop. RICARDO Voice ID: [id number] Report ID: [id number]
== END 2024-01-05 16:39 | disposition home or self-care (01) ==
LOC: OR 10:58
PROVIDERS: ATTEND Obstetrics & Gynecology
PROC: 0UB44ZZ Excision of Uterine Supporting Structure, Percutaneous Endoscopic Approach (ICD-10-PCS; 2024-01-05)
PROC: 0U5B8ZZ Destruction of Endometrium, Via Natural or Artificial Opening Endoscopic (ICD-10-PCS; 2024-01-05)
PROC: 0UBMXZZ Excision of Vulva, External Approach (ICD-10-PCS; 2024-01-05)
PROC: 0UT74ZZ Resection of Bilateral Fallopian Tubes, Percutaneous Endoscopic Approach (ICD-10-PCS; principal; 2024-01-05 12:30)
DX: N94.6 Dysmenorrhea, unspecified (principal); N92.1 Excessive and frequent menstruation with irregular cycle; N80.3C3 Endometriosis of bilateral uterosacral ligament(s), unspecified depth; N83.8 Other noninflammatory disorders of ovary, fallopian tube and broad ligament
CPT/HCPCS: 58661; 58662; 58563; 56620; 81025; 88305; J2704; J2001; J2250; J3010 ×3; J1100; J2175; J1170; J2405; J7120; 88302